=== PATIENT | female | born 1960 | race Caucasian/White ===

== ENCOUNTER 2016-09-19 00:47 | Emergency (ER) | payer OTHER ==
[2016-09-19 01:18] LABS: BASOPHIL 0.7 % (0-2); EOSINOPHIL 6.9 % (0-5); HCT 36.6 % (37.0-47.0); HGB 12.4 g/dl (12.5-16.0); LYMPHOCYTE 55.6 % (15-48); MCH 29.1 pg (25.0-31.0); MCHC 33.9 g/dL (32.0-36.0); MCV 85.9 fL (78.0-100.0); MONOCYTE 6.6 % (0-12); MPV 9.8 fL (6.0-9.5); NEUTROPHIL 30.2 % (41-80); PLT 222 K/uL (150-400); RBC 4.26 M/uL (4.20-5.40); WBC 7.3 K/uL (4.0-10.5)
[2016-09-19 01:30] LABS: CKMB 1.99 ng/mL (0.97-4.94); TROPONIN T < 0.010 ng/mL
[2016-09-19 01:32] LABS: CREATININE 0.9 mg/dL (0.5-1.0)
[2016-09-19 01:49] LABS: POTASSIUM 3.8 mmol/L (3.5-5.1)
== END 2016-09-19 02:36 | disposition home or self-care (01) ==
LOC: FER 00:47
PROVIDERS: Emergency Medicine
DX: J44.1 Chronic obstructive pulmonary disease with (acute) exacerbation (principal); R73.9 Hyperglycemia, unspecified; Z87.891 Personal history of nicotine dependence; Z88.0 Allergy status to penicillin; Z88.2 Allergy status to sulfonamides; Z88.5 Allergy status to narcotic agent; Z79.51 Long term (current) use of inhaled steroids; Z79.82 Long term (current) use of aspirin; Z79.899 Other long term (current) drug therapy; Z98.61 Coronary angioplasty status
CPT/HCPCS: 36415; 71020; 80048; 82550; 82553; 84484; 85025; 93005; 94640; 94760

== ENCOUNTER 2021-02-14 20:09 | Emergency (ER) | payer OTHER ==
[~2021-02-14 20:09] MED LIST: CEFDINIR300 MG PO; GLUCOTROL XL5 MG PO; L-LYSINE500 M1 PO; LIPITOR20 MG PO; NORVASC5 MG PO; PAXIL10 MG PO; PROTONIX 40MG T40 MG PO; SENNA LAXATIVE8.6 MG PO; ZOFRAN4 MG PO
[2021-02-14] MEDS ORDERED: MEDROL 4MG DOSEP4 MG PO (21:55)
[2021-02-14] MEDS ORDERED: ZPAK PO (21:55)
[2021-02-14] MEDS ORDERED: VENTOLIN HFA18 GM INH (21:55)
== END 2021-02-14 22:20 | disposition home or self-care (01) ==
LOC: FER 20:09
DX: U07.1 COVID-19 (principal); I10 Essential (primary) hypertension; J44.9 Chronic obstructive pulmonary disease, unspecified; Z23 Encounter for immunization; Z88.0 Allergy status to penicillin; Z88.2 Allergy status to sulfonamides; Z88.5 Allergy status to narcotic agent
CPT/HCPCS: M0243; Q0244

== ENCOUNTER 2021-12-01 16:05 | Emergency (ER) | payer OTHER ==
[~2021-12-01 16:05] MED LIST changes: +MEDROL 4MG DOSEP4 MG PO; +VENTOLIN HFA18 GM INH; +ZPAK PO
[2021-12-01] MEDS ORDERED: PREDNISONE 20MG20 MG PO (17:54)
== END 2021-12-01 18:52 | disposition home or self-care (01) ==
LOC: FER 16:05
DX: M54.16 Radiculopathy, lumbar region (principal); E11.9 Type 2 diabetes mellitus without complications; Z88.2 Allergy status to sulfonamides; Z88.0 Allergy status to penicillin; Z88.5 Allergy status to narcotic agent; Z79.84 Long term (current) use of oral hypoglycemic drugs
CPT/HCPCS: 72131; J1885; J7512